=== PATIENT | female | born 1960 | race African-American/Black ===

== ENCOUNTER 2017-06-22 10:34 | Emergency (ER) | payer MEDICAID ==
[~2017-06-22] VITALS: Ht 167.6 cm; Wt 63.5 kg
[~2017-06-22 10:34] MED LIST: HYDR-4446 PO
[2017-06-22 10:44] VITALS: BP 139/87
[2017-06-22] MEDS ORDERED: [UNRECOGNIZED DRUG - REMARK] (10:50)
--- NOTE | 2017-06-22 10:51 | NUR ---
Patient ambulated to bed 08.
--- NOTE | 2017-06-22 10:56 | NUR ---
Dr. Baker evaluating patient at bedside.
--- NOTE | 2017-06-22 10:58 | NUR ---
PATIENT PRESENTS TO ED WITH C/O RIGHT EYE PAIN/PRESSURE X2DAYS STS POSSIBLY R/T SINUS INFECTION. 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 PT STATES SHE GOT FACIAL PAIN AND IF HER NOSE IS CONGESTED. DENIES N/V/D; SKIN IS PINK/WARM/DRY; AAOX4 WITH EVEN AND STEADY GAIT;PT DENIES ANY FEVER, CP, SOB, OR COUGH AT THIS TIME; PATIENT STATES PAIN OF 9/10 AT THIS TIME;PATIENT POSITIONED FOR COMFORT; HOB ELEVATED; BEDRAILS UP X2; BED DOWN. ER MD MADE AWARE OF PT STATUS.
--- NOTE | 2017-06-22 11:11 | NUR ---
Patient discharged with v/s stable. Written and verbal after care instructions given and explained. Patient alert, oriented and verbalized understanding of instructions. Ambulatory with steady gait. All questions addressed prior to discharge. ID band removed. Patient advised to follow up with PMD. Rx of NORCO AND CLARITIN given. Patient educated on indication of medication including possible reaction and side effects. Opportunity to ask questions provided and answered.
[2017-06-22 11:12] VITALS: BP 128/84
== END 2017-06-22 11:11 | disposition home or self-care (01) ==
LOC: MED 10:34
DX: J32.0 Chronic maxillary sinusitis (principal); Z88.0 Allergy status to penicillin; Z88.3 Allergy status to other anti-infective agents; Z79.899 Other long term (current) drug therapy; Z90.89 Acquired absence of other organs
CPT/HCPCS: 99283

== ENCOUNTER 2017-10-11 09:44 | Emergency (ER) | payer MEDICAID ==
[~2017-10-11] VITALS: Ht 165.1 cm; Wt 64.4 kg
[~2017-10-11 09:44] MED LIST changes: +ACET-8386 PO; -HYDR-4446 PO; +[UNRECOGNIZED DRUG - REMARK]
[2017-10-11 10:04] VITALS: BP 146/87
--- NOTE | 2017-10-11 10:17 | NUR ---
Patient to bed 03.
--- NOTE | 2017-10-11 10:18 | NUR ---
PT PRESENTS TO ER W/C/O COUGH. HX SARCOIDOSIS. DENIES N/V/D; SKIN IS PINK/WARM/DRY; AAOX4 WITH EVEN AND STEADY GAIT; LUNGS CLEAR BL; HR EVEN AND REGULAR; PT DENIES ANY FEVER, SOB, OR COUGH AT THIS TIME; PATIENT STATES PAIN OF 9/10 AT THIS TIME; VSS; PATIENT POSITIONED FOR COMFORT; HOB ELEVATED; BEDRAILS UP X2; BED DOWN. ER MD MADE AWARE OF PT STATUS.
--- NOTE | 2017-10-11 10:21 | NUR ---
DR KEANE EVALUATING AAO PT AT BEDSIDE
[2017-10-11 10:33] VITALS: BP 146/87
--- NOTE | 2017-10-11 10:33 | NUR ---
Patient discharged with v/s stable. Written and verbal after care instructions given and explained. Patient alert, oriented and verbalized understanding of instructions. Ambulatory with steady gait. All questions addressed prior to discharge. ID band removed. Patient advised to follow up with PMD. Rx of FATOUMATA LEE given. Patient educated on indication of medication including possible reaction and side effects. Opportunity to ask questions provided and answered.
== END 2017-10-11 10:33 | disposition home or self-care (01) ==
LOC: MED 09:44
DX: J40 Bronchitis, not specified as acute or chronic (principal); Z76.5 Malingerer [conscious simulation]; Z79.899 Other long term (current) drug therapy; Z88.0 Allergy status to penicillin; Z88.8 Allergy status to other drugs, medicaments and biological substances
CPT/HCPCS: 99283

== ENCOUNTER 2018-10-03 11:13 | Emergency (ER) | payer MEDICAID ==
[~2018-10-03] VITALS: Ht 165.1 cm; Wt 62.6 kg
[2018-10-03 11:21] VITALS: BP 128/84
--- NOTE | 2018-10-03 11:27 | NUR ---
Patient ambulated to bed 4 at this time.
--- NOTE | 2018-10-03 11:40 | NUR ---
PATIENT PRESENTS TO ED WITH C/O RIGHT SHOULDER PAIN X 3 DAYS. REPORTS HX OF SHOULDER BURSITIS. PATIENT STATES PAIN OF 8/10 AT THIS TIME; VSS; PATIENT POSITIONED FOR COMFORT; HOB ELEVATED; BEDRAILS UP X2; BED DOWN. ER MD MADE AWARE OF PT STATUS.
--- NOTE | 2018-10-03 13:24 | NUR ---
Patient being evaluated by physician at bedside.
[2018-10-03] MEDS ORDERED: MORPHINE SULFATE 4 MG/ML SYR IM ONE (13:30)
[2018-10-03 14:21] VITALS: BP 128/84
--- NOTE | 2018-10-03 14:21 | NUR ---
Patient discharged with v/s stable. Written and verbal after care instructions given and explained. Patient alert, oriented and verbalized understanding of instructions. Ambulatory with steady gait. All questions addressed prior to discharge. ID band removed. Patient advised to follow up with PMD. Rx of PREDNISONE, MOTRIN, NORCO given. Patient educated on indication of medication including possible reaction and side effects. Opportunity to ask questions provided and answered.
== END 2018-10-03 14:21 | disposition home or self-care (01) ==
LOC: MED 11:13
DX: M25.511 Pain in right shoulder (principal); Z88.0 Allergy status to penicillin; Z88.8 Allergy status to other drugs, medicaments and biological substances; Z79.899 Other long term (current) drug therapy
CPT/HCPCS: 96372; 99283; J2270

== ENCOUNTER 2019-01-01 10:20 | Emergency (ER) | payer MEDICAID ==
[~2019-01-01] VITALS: Ht 165.1 cm; Wt 63.5 kg
[2019-01-01 10:27] VITALS: BP 115/79
--- NOTE | 2019-01-01 11:44 | NUR ---
PATIENT AMBULATED TO BED 4 AT THIS TIME.
[2019-01-01 11:45] VITALS: BP 115/79
--- NOTE | 2019-01-01 11:45 | NUR ---
58 YO FEMALE BIB SELF FOR COUGH FOR 1 WEEK, DRY COUGH, NON PRODUCTIVE COUGH, PT STATES SHE IS HERE FOR A MEDICATION REFILL, PT RAN OUT OF COUGH MEDICATION PROMETHAZINE AND WAS NOT ABLE TO MAKE AN APPT WITH HER PCP. PT IS AAOX4, VSS AT THIS TIME, EVEN AND UNLABORED BREATHING AT THIS TIME, BED DOWN, BEDRAIL UP X 1, ER MD AWARE AND NOTIFIED OF PT STATUS. PMH: NONE RX: PROMETHAZINE
--- NOTE | 2019-01-01 12:31 | NUR ---
PATIENT LEFT WITHOUT BEING SEEN BY DR. ESCOBAR. NO FURTHER CARE PROVIDED FOR PATIENT.
== END 2019-01-01 12:31 | disposition left against medical advice (07) ==
LOC: MED 10:20
DX: R05 Cough (principal); Z53.21 Procedure and treatment not carried out due to patient leaving prior to being seen by health care provider

== ENCOUNTER 2019-01-12 10:09 | Emergency (ER) | payer MEDICAID ==
[~2019-01-12] VITALS: Ht 165.1 cm; Wt 61.7 kg
[2019-01-12 10:20] VITALS: BP 132/60
--- NOTE | 2019-01-12 10:27 | NUR ---
PT C/O RIGHT HIP PAIN X 1 WEEK. HX OF BURSITIS. PATIENT STATES TOOK A NORCO BUT DID NOT HELP. NO INCREASE IN DAY TO DAY ACTIVITIES. DENIES TRAUMA. PAIN 8/10, INCREASING WITH MOVEMENT AND WEIGHT BEARING. VSS; PATIENT POSITIONED FOR COMFORT; HOB ELEVATED; BEDRAILS UP X1; BED DOWN. ER MD MADE AWARE OF PT STATUS.
[2019-01-12] MEDS ORDERED: fentaNYL 0.05 MG/ML VIAL IM ONE (10:40)
[2019-01-12 11:24] VITALS: BP 132/60
== END 2019-01-12 11:25 | disposition home or self-care (01) ==
LOC: MED 10:09
DX: M25.551 Pain in right hip (principal); Z88.6 Allergy status to analgesic agent; Z88.0 Allergy status to penicillin; Z79.891 Long term (current) use of opiate analgesic
CPT/HCPCS: 96372; 99283; J3010

== ENCOUNTER 2019-02-26 11:11 | Emergency (ER) | payer MEDICAID ==
[~2019-02-26] VITALS: Ht 165.1 cm; Wt 64.9 kg
[2019-02-26 11:22] VITALS: BP 161/84
--- NOTE | 2019-02-26 11:31 | NUR ---
MARCELLUS GLASS AT BEDSIDE TO EVALUATE PT.
--- NOTE | 2019-02-26 11:34 | NUR ---
PT A&OX4, BREATHING EVEN AND UNLABORED. LUNG SOUNDS CTAB. C/O DRY COUGH X 3 DAYS AND "OUT OF PROMETHAZINE." NSR ON MONITOR. DENIES CP/SOB/PAIN.
[2019-02-26 11:40] VITALS: BP 161/84
--- NOTE | 2019-02-26 11:40 | NUR ---
Patient discharged with v/s stable. Written and verbal after care instructions given and explained. Patient alert, oriented and verbalized understanding of instructions. Ambulatory with steady gait. All questions addressed prior to discharge. ID band removed. Patient advised to follow up with PMD. Rx of PROMETHAZINE given. Patient educated on indication of medication including possible reaction and side effects. Opportunity to ask questions provided and answered.
== END 2019-02-26 11:40 | disposition home or self-care (01) ==
LOC: MED 11:11
DX: D86.9 Sarcoidosis, unspecified (principal); E07.9 Disorder of thyroid, unspecified; Z88.1 Allergy status to other antibiotic agents; Z79.899 Other long term (current) drug therapy; Z88.8 Allergy status to other drugs, medicaments and biological substances; Z90.49 Acquired absence of other specified parts of digestive tract
CPT/HCPCS: 99283

== ENCOUNTER 2019-05-01 13:47 | Emergency (ER) | payer MEDICAID ==
[~2019-05-01] VITALS: Ht 165.1 cm; Wt 63.5 kg
[2019-05-01 13:53] VITALS: BP 106/67
--- NOTE | 2019-05-01 14:03 | NUR ---
PT BIB W/C ASSIST TO ED BED 11
--- NOTE | 2019-05-01 14:37 | NUR ---
PT REQUESTS WATER TO GIVE URINE SAMPLE, DR FAYE MADE AWARE AND OKAYED.
[2019-05-01 14:53] LABS: HEMATOCRIT 39.5 % (36-48); MEAN CORPUSCULAR HEMOGLOBIN 29 pg (27-31); MEAN CORPUSCULAR HGB CONC 33 g/dL (33-37); MEAN CORPUSCULAR VOLUME 89.3 fL (80-94); PLATELET COUNT (AUTO) 301 K/uL (140-450); RED BLOOD CELL COUNT(AUTO) 4.42 MIL/uL (4.20-5.40); RED CELL DISTRIBUTION WIDTH 15.3 % (11.6-13.7); WHITE BLOOD COUNT (AUTO) 7.9 K/uL (4.8-10.8)
[2019-05-01 15:11] LABS: ALBUMIN 3.8 g/dL (3.4-5.0); ANION GAP 15.3 (8-16); CARBON DIOXIDE 24.4 mmol/L (21-32); CREATININE 1.1 mg/dL (0.6-1.3); POTASSIUM 3.7 mmol/L (3.5-5.1); TOTAL BILIRUBIN 0.3 mg/dL (0.0-1.0)
--- NOTE | 2019-05-01 15:15 | NUR ---
STRAIGHT CATH# 14 FR Velez catheter utilizing sterile technique. Immediate return of 20 ml YELLOW CLEAR urine noted. Urine sample collected and sent to lab. Pt tolerated procedure WELL. POSITIONED TO COMFORT.
[2019-05-01 15:18] LABS: APPEARANCE,URINE CLEAR (CLEAR); BILIRUBIN,URINE 2+ (NEGATIVE); BLOOD, URINE NEGATIVE (NEGATIVE); COLOR,URINE YELLOW (YELLOW); LEUKOCYTE ESTERASE ,URINE NEGATIVE (NEGATIVE); NITRITE, URINE NEGATIVE (NEGATIVE); PH,URINE 5.5 (5.0-9.0); UGLUCOSE NEGATIVE (NEGATIVE)
[2019-05-01 15:24] LABS: EOSINOPHILS % (MANUAL) 30 % (0-4); LYMPHOCYTES % (MANUAL) 37 % (20-46); MONOCYTES % (MANUAL) 2 % (5-12)
--- NOTE | 2019-05-01 16:05 | NUR ---
Patient discharged with v/s stable. Written and verbal after care instructions given and explained. Patient verbalized understanding. Ambulatory with steady gait. All questions addressed prior to discharge. Advised to follow up with PMD.
[2019-05-01 16:14] VITALS: BP 105/61
== END 2019-05-01 16:05 | disposition home or self-care (01) ==
LOC: MED 13:47
DX: R10.9 Unspecified abdominal pain (principal); R53.1 Weakness; E07.9 Disorder of thyroid, unspecified; E78.5 Hyperlipidemia, unspecified; Z79.899 Other long term (current) drug therapy; Z88.0 Allergy status to penicillin; Z88.8 Allergy status to other drugs, medicaments and biological substances
CPT/HCPCS: 36415; 80053; 81003; 85025; 87086; 99283; C1758

== ENCOUNTER 2019-05-05 20:25 | Emergency (ER) | payer MEDICAID ==
[~2019-05-05] VITALS: Ht 165.1 cm; Wt 59.4 kg
[2019-05-05 20:35] VITALS: BP 120/71
--- NOTE | 2019-05-05 20:41 | NUR ---
PT AMBULATED BACK OUT TO [facility]
--- NOTE | 2019-05-05 21:16 | NUR ---
PT BROUGHT TO BED 2 VIA WHEELCHAIR
--- NOTE | 2019-05-05 21:26 | NUR ---
PT C/O COUGH WITH YELLOW-GREENISH SPUTUM FOR ONE WEEK. DENIES N/V/D; SKIN IS PINK/WARM/DRY; AAOX4 WITH EVEN AND STEADY GAIT; PT DENIES ANY FEVER OR CHEST PAIN AT THIS TIME; PATIENT STATES PAIN OF 0/10 AT THIS TIME; VSS; PATIENT POSITIONED FOR COMFORT; HOB ELEVATED; BEDRAILS UP X1; BED DOWN. ER MD MADE AWARE OF PT STATUS.
--- NOTE | 2019-05-05 21:49 | NUR ---
Patient discharged with v/s stable. Written and verbal after care instructions given and explained. Patient alert, oriented and verbalized understanding of instructions. Ambulatory with steady gait. All questions addressed prior to discharge. ID band removed. Patient advised to follow up with PMD. Rx of ALBUTEROL, PREDNISONE, AND TESSALON PERLES given. Patient educated on indication of medication including possible reaction and side effects. Opportunity to ask questions provided and answered.
[2019-05-05 21:50] VITALS: BP 119/70
== END 2019-05-05 21:49 | disposition home or self-care (01) ==
LOC: MED 20:25
DX: J40 Bronchitis, not specified as acute or chronic (principal); Z88.0 Allergy status to penicillin; Z88.8 Allergy status to other drugs, medicaments and biological substances; Z79.899 Other long term (current) drug therapy
CPT/HCPCS: 71045; 99283

== ENCOUNTER 2019-05-12 13:45 | Emergency (ER) | payer MEDICAID ==
[~2019-05-12] VITALS: Ht 165.1 cm; Wt 64.1 kg
[2019-05-12 14:23] VITALS: BP 111/75
--- NOTE | 2019-05-12 14:29 | NUR ---
VSS. WAIT IN LOBBY
--- NOTE | 2019-05-12 14:46 | NUR ---
PT TO ROOM 12
--- NOTE | 2019-05-12 14:47 | NUR ---
59 Y FEMALE BIB SELF C/O ANGEL LEGS SWOLLEN X 2 DAYS. CHRONIC COUGH 7 SEEN HERE FOR BROCHITIS 05/05/19. PT STATES SHE WANTS A REFILL FOR HER LASIX AND PROMETHAZINE SINCE HER DR IS UNAVAILABLE. LUNGS CLEAR BILATERALLY. SLIGHT SWELLING BILATERAL LEGS, PALPABLE PEDAL PULSES. VSS AT THIS TIME. PT AA0X4. BED IS DOWN, LOCKED, BED RAIL X 1, ERMD TO SEE PT. MED HX: SARCOIDOSIS RX- UNKNOWN DOSES OF LASIX AND PROMETHAZINE
--- NOTE | 2019-05-12 15:19 | NUR ---
DR ESCOBAR AT BEDSIDE
[2019-05-12] MEDS ORDERED: methylPREDNISolone SS 125 MG/2 ML VIAL IVP ONE (15:35)
[2019-05-12] MEDS ORDERED: ALBUTEROL SULFATE/IPRATROPIU 3 ML SOL IH ONE (15:35)
--- NOTE | 2019-05-12 15:40 | NUR ---
US WAITING FOR XRAY TO FINISH
--- NOTE | 2019-05-12 15:40 | NUR ---
XRAY AT BEDSIDE
--- NOTE | 2019-05-12 15:51 | NUR ---
LAB AT BEDSIDE
--- NOTE | 2019-05-12 15:58 | NUR ---
LAB STATES THEY CAN'T GET BLOOD, WILL RETURN AFTER US IS FINISHED
--- NOTE | 2019-05-12 16:00 | NUR ---
ULTRA SOUND PROCEDURE IN PROGRESS SAP ABAP DEVELOPER TO ATTEMPT [facility] THERAPY AT A LATER TIME
--- NOTE | 2019-05-12 16:13 | NUR ---
[facility] THERAPY AND RESIRATORY DRUG GIVEN ORDERED ENCOURAGED PATIENT WITH ACKNOWLEDGEMENT FOR INTERMITTENT DEEP BREATHING DURING THERAPY
[2019-05-12 16:17] LABS: BARBITURATE, URINE NEG. ng/ml (NEG <=200); BENZODIAZEPINE, URINE NEG. ng/mL (NEG <=200); CANNABINOID, URINE NEG. ng/mL (NEG <=50); COCAINE, URINE NEG. ng/mL (NEG <=300); OPIATE, URINE NEG. ng/mL (NEG <=2000); PHENCYCLIDINE SCREEN,URINE NEG. ng/mL (NEG <=25)
[2019-05-12 16:48] LABS: HEMATOCRIT 34.6 % (36-48); HEMOGLOBIN 11.3 g/dL (12.0-16.0); MEAN CORPUSCULAR HEMOGLOBIN 29 pg (27-31); MEAN CORPUSCULAR HGB CONC 33 g/dL (33-37); MEAN CORPUSCULAR VOLUME 89.8 fL (80-94); PLATELET COUNT (AUTO) 375 K/uL (140-450); RED BLOOD CELL COUNT(AUTO) 3.85 MIL/uL (4.20-5.40); RED CELL DISTRIBUTION WIDTH 15.5 % (11.6-13.7); WHITE BLOOD COUNT (AUTO) 10.6 K/uL (4.8-10.8)
[2019-05-12 17:00] LABS: CARBON DIOXIDE 33.3 mmol/L (21-32); CREATININE 0.8 mg/dL (0.6-1.3); POTASSIUM 3.3 mmol/L (3.5-5.1); PROTHROMBIN TIME 9.3 secs (10.8-13.4)
[2019-05-12 17:06] LABS: ALBUMIN 3.5 g/dL (3.4-5.0); MAGNESIUM 1.4 mg/dL (1.8-2.4); TOTAL BILIRUBIN 0.2 mg/dL (0.0-1.0)
[2019-05-12 17:25] LABS: BASOPHILS % (MANUAL) 0 % (0-2); EOSINOPHILS % (MANUAL) 11 % (0-4); LYMPHOCYTES % (MANUAL) 51 % (20-46); MONOCYTES % (MANUAL) 5 % (5-12)
[2019-05-12] MEDS ORDERED: FURO-572 PO (17:39)
[2019-05-12] MEDS ORDERED: PHE25S RC (17:39)
--- NOTE | 2019-05-12 18:53 | NUR ---
VSS AT THIS TIME. PT AA0X4. PT CO 07/[address] ESCOBAR NOTIFIED.
--- NOTE | 2019-05-12 19:15 | NUR ---
report given to cris campos
[2019-05-12] MEDS ORDERED: MORPHINE SULFATE 4 MG/ML SYR IVP ONE (19:30)
[2019-05-12] MEDS ORDERED: ONDANSETRON 4 MG/2 ML VIAL IVP ONE (19:30)
--- NOTE | 2019-05-12 19:30 | NUR ---
RECEIVED REPORT FROM AM NURSE. PT LAYING IN BED, RR EVEN AND UNLABORED. VSS. REPORTS CHRONIC UPPER BACK PAIN AT THIS TIME. ALL NEEDS MET.
--- NOTE | 2019-05-12 20:20 | NUR ---
Patient to be transferred to [facility]. Is being transferred due to PLEURAL EFFUSION. Receiving facility has accepting physician and available space. ER physician has signed transfer form. Patient or responsible democrat has agreed to transfer and signed form. Patient belongings inventoried and will be sent with patient. Copy of nursing notes, lab reports, EKG, Physicians Orders and X-rays to be sent with patient. Report called to MANN CORADO at receiving facility. [facility] ambulance service has been called for transfer. ETA is 50 MINS.
--- NOTE | 2019-05-12 20:50 | NUR ---
[facility] AT BEDSIDE.
--- NOTE | 2019-05-12 20:50 | NUR ---
PT LAYING IN BED, RR EVEN AND UNLABORED. VSS. REPORTS IMPROVEMENT IN UPPER BACK PAIN AFTER MEDS. [facility] AT BEDSIDE, REPORT GIVEN. PT BELONGINGS AND TRANSFER PAPERWORK GIVEN TO [facility].
[2019-05-12 21:00] VITALS: BP 125/72
--- NOTE | 2019-05-12 21:00 | NUR ---
PT TAKEN BY [facility] TO [facility] ROOM 124A
== END 2019-05-12 21:00 | disposition short-term general hospital (02) ==
LOC: MED 13:45
DX: J90 Pleural effusion, not elsewhere classified (principal); R60.0 Localized edema; Z87.09 Personal history of other diseases of the respiratory system; Z88.0 Allergy status to penicillin; Z88.8 Allergy status to other drugs, medicaments and biological substances; Z79.899 Other long term (current) drug therapy
CPT/HCPCS: 36415; 71045; 71250; 80053; 80305; 83735; 84484; 85025; 85379; 85610; 93005; 93971; 94640; 96374; 96375; 99285; J2270; J2405; J2930; J7620; Q0092

== ENCOUNTER 2019-05-26 09:48 | Emergency (ER) | payer MEDICAID ==
[~2019-05-26] VITALS: Ht 162.6 cm; Wt 63.2 kg
[~2019-05-26 09:48] MED LIST changes: +FURO-572 PO; +PHE25S RC; -[UNRECOGNIZED DRUG - REMARK]
[2019-05-26 09:55] VITALS: BP 118/75
--- NOTE | 2019-05-26 09:58 | NUR ---
Patient ambulated to bed 7.
--- NOTE | 2019-05-26 10:05 | NUR ---
PT BIB SELF C/O BLE EDEMA X4 DAYS. PT STATES SHE THINKS IT COULD BE FROM HER DAUGHTER COOKING WITH EXCESS SALT. LEGS DO NOT APPEAR SWOLLEN, NO PITTING EDEMA, RADIAL PULSES EQUAL 2+, NO JUGULAR BRYCE DISTENTION, HEART RRR, LUNG SOUNDS CLEAR THROUGHOUT. PT WAS SEEN HERE ON 05/22 AND SEND TO A HOSPITAL IN [place] DUE TO PLUERAL EFUSION SECONDARY TO KIDNEY INFECTION. VSS. ER MD TO SEE PT. MEDHX:PLUERAL EFFUSION, SACOIDOSIS, CHRONIC BACK PAIN RX:NORCO
== END 2019-05-26 10:27 | disposition home or self-care (01) ==
LOC: MED 09:48
DX: I89.0 Lymphedema, not elsewhere classified (principal); D86.9 Sarcoidosis, unspecified; Z88.0 Allergy status to penicillin; Z88.8 Allergy status to other drugs, medicaments and biological substances; Z79.899 Other long term (current) drug therapy
CPT/HCPCS: 99281

== ENCOUNTER 2019-06-05 14:10 | Emergency (ER) | payer MEDICAID ==
[~2019-06-05] VITALS: Ht 167.6 cm; Wt 61.2 kg
[2019-06-05 14:17] VITALS: BP 123/74
--- NOTE | 2019-06-05 14:18 | NUR ---
59 Y FEMALE BIB SELF C/O CHRONIC, DRY COUGH. PT STATES RECENTLY SHE HASNT BEEN ABLE TO SLEEP BECAUSE OF THE COUGH. LUNGS CLEAR BILATERALLY, RR EVEN AND UNLABORED. PAIN 02/03. VSS AT THIS TIME. PT AA0X4. PT REQUESTING MEDICATIONS UNTIL SHE CAN FOLLOW UP WITH HER PCP. PMH- SARCOIDOSIS, HIGH CHOLESTEROL RX- SIMVASTATIN
--- NOTE | 2019-06-05 14:22 | NUR ---
PT TO WAIT IN ER LOBBY. PT AA0X4. FULL, CLEAR SPEECH. VSS AT THIS TIME.
[2019-06-05] MEDS ORDERED: SIMV10TA1 PO (14:30)
--- NOTE | 2019-06-05 15:21 | NUR ---
PT AMBULATED TO BED 02.
--- NOTE | 2019-06-05 15:38 | NUR ---
RADHA ROLLE AT BEDSIDE FOR PT EVALUATION
[2019-06-05 15:51] VITALS: BP 127/75
--- NOTE | 2019-06-05 15:51 | NUR ---
Patient discharged with v/s stable. Written and verbal after care instructions given and explained. Patient alert, oriented and verbalized understanding of instructions. Ambulatory with steady gait. All questions addressed prior to discharge. ID band removed. Patient advised to follow up with PMD IN 2-3 DAYS. Rx of TESSALTREVER PERLES, PROMETHAZINE given. Patient educated on indication of medication including possible reaction and side effects. Opportunity to ask questions provided and answered.
== END 2019-06-05 15:51 | disposition home or self-care (01) ==
LOC: MED 14:10
DX: R05 Cough (principal); D86.9 Sarcoidosis, unspecified; Z76.0 Encounter for issue of repeat prescription; Z79.899 Other long term (current) drug therapy; Z88.0 Allergy status to penicillin; Z88.8 Allergy status to other drugs, medicaments and biological substances
CPT/HCPCS: 99283

== ENCOUNTER 2019-06-27 09:54 | Emergency (ER) | payer MEDICAID ==
[~2019-06-27] VITALS: Ht 168.9 cm; Wt 62.1 kg
[~2019-06-27 09:54] MED LIST changes: -FURO-572 PO; +SIMV10TA1 PO
[2019-06-27 10:02] VITALS: BP 120/82
--- NOTE | 2019-06-27 10:07 | NUR ---
PT AMB TO BED 8 WITH STEADY GAIT
--- NOTE | 2019-06-27 10:07 | NUR ---
59 Y FEMALE BIB SELF C/O CHRONIC UPPER BACK PAIN 08/06. DENIES DYSURIA. PT REQUESTING TRAMADOL. NO OBVIOUS DEFORMITY. VSS AT THIS TIME. AA0X4. BED IS DOWN, LOCKED, BED RAIL X 1, ERMD TO SEE PT. PMH- SARCODOSIS RX- NORCO 325
--- NOTE | 2019-06-27 10:31 | NUR ---
dr denis at bedside
[2019-06-27 10:42] VITALS: BP 119/83
--- NOTE | 2019-06-27 10:42 | NUR ---
Patient discharged with v/s stable. Written and verbal after care instructions given and explained. Patient alert, oriented and verbalized understanding of instructions. Ambulatory with steady gait. All questions addressed prior to discharge. ID band removed. Patient advised to follow up with PMD. Rx of motrin, tramadol hydrochloride, zofran given. Patient educated on indication of medication including possible reaction and side effects. Opportunity to ask questions provided and answered.
== END 2019-06-27 10:42 | disposition home or self-care (01) ==
LOC: MED 09:54
DX: G89.29 Other chronic pain (principal); M54.6 Pain in thoracic spine; Z90.49 Acquired absence of other specified parts of digestive tract; Z98.890 Other specified postprocedural states; Z79.899 Other long term (current) drug therapy; Z88.0 Allergy status to penicillin; Z88.8 Allergy status to other drugs, medicaments and biological substances
CPT/HCPCS: 99283

== ENCOUNTER 2019-07-30 08:21 | Emergency (ER) | payer MEDICAID ==
[~2019-07-30] VITALS: Ht 165.1 cm; Wt 63.5 kg
[2019-07-30 08:32] VITALS: BP 150/77
--- NOTE | 2019-07-30 08:42 | NUR ---
PT AMB TO BED 2.
--- NOTE | 2019-07-30 08:55 | NUR ---
PT STATES SHE WOULD LIKE A MED REFIL FOR EITHER TYLENOL 3 OR TRAMADOL. STATES SHE TYPICALLY RECEIVES NORCO FOR HER SARCOIDOSIS/CHRONIC BACK PAIN BUT SHE DOESN'T LIKE HOW IT MAKES HER FEEL. PT STATES SHE HAS PAIN RIGHT NOW BUT IT ISNT ANYTHING UNUSUAL FOR HER SHE SUFFERS FROM BACK PAIN EVERYDAY. BED IN LOW POSITION, SIDE RAIL UP X1
[2019-07-30 09:44] VITALS: BP 150/77
--- NOTE | 2019-07-30 09:44 | NUR ---
Patient discharged with v/s stable. Written and verbal after care instructions given and explained. Patient alert, oriented and verbalized understanding of instructions. Ambulatory with steady gait. All questions addressed prior to discharge. ID band removed. Patient advised to follow up with PMD. Rx of REGLAN & TRAMADOL given. Patient educated on indication of medication including possible reaction and side effects. Opportunity to ask questions provided and answered.
== END 2019-07-30 09:44 | disposition home or self-care (01) ==
LOC: MED 08:21
DX: M54.6 Pain in thoracic spine (principal); D86.9 Sarcoidosis, unspecified; Z79.899 Other long term (current) drug therapy; Z88.0 Allergy status to penicillin; Z88.8 Allergy status to other drugs, medicaments and biological substances
CPT/HCPCS: 99283

== ENCOUNTER 2019-10-04 13:01 | Emergency (ER) | payer MEDICAID ==
[~2019-10-04] VITALS: Ht 165.1 cm; Wt 63.5 kg
[2019-10-04 13:06] VITALS: BP 108/75
--- NOTE | 2019-10-04 13:09 | NUR ---
PT STATES "I CANT STAND ON THE SCALE, I AM TOO WEAK" PT AMBULATES WITHOUT ASSISTANCE FROM ER LOBBY TO TRIAGE ROOM WITH STEADY GAIT
--- NOTE | 2019-10-04 13:11 | NUR ---
PT TO ER LOBBY. PT ALERT AND AWAKE.
--- NOTE | 2019-10-04 13:14 | NUR ---
PT STATES SHE IS UNABLE TO PROVIDE URINE AT THIS TIME
--- NOTE | 2019-10-04 13:54 | NUR ---
PT AMBULATED TO BED 03.
--- NOTE | 2019-10-04 14:16 | NUR ---
PT PRESENTS TO THE ED WITH C/O ABD PAIN WITH N/V/D X 0800 TODAY. PT STATES ABD PAIN FEELS LIKE "CRAMPING" AND RATES IT 9/10 AT THIS TIME. BOWEL SOUNDS ACTIVE IN ALL QUADRANTS. PT STATES LAST BM WAS 10/04/19. PT PRESENTS WITH A CLEAR SPEECH AND IS AAOX4. PT DENIES ANY FEVER, CP, SOB, OR COUGH AT THIS TIME. PT STATES THAT SHE WOULD ALSO LIKE TO FIND OUT ABOUT GETTING A PRESCRIPTION REFILL. PT POSITIONED FOR COMFORT. BED RAILS UP X 1. ER MD TO SEE PT. ALLERGY: PENICILLIN PMH- HIGH CHOLESTEROL, CHRONIC BACK PAIN, SARCODOSIS RX: ATVORSTATIN, NORCO, TRAMADOL
[2019-10-04] MEDS ORDERED: fentaNYL 0.05 MG/ML VIAL IVP ONE (15:25)
[2019-10-04] MEDS ORDERED: ONDANSETRON 4 MG/2 ML VIAL IVP ONE (15:25)
[2019-10-04] MEDS ORDERED: NACL 0.9% 1,000 ML IV ONE (15:25)
--- NOTE | 2019-10-04 17:13 | NUR ---
Patient discharged with v/s stable. Written and verbal after care instructions given and explained. Patient alert, oriented and verbalized understanding of instructions. Ambulatory with steady gait. All questions addressed prior to discharge. ID band removed. Patient advised to follow up with PMD. Rx of TRAMADOL 50 MG, ZOFRAN ODT 4 MG given. Patient educated on indication of medication including possible reaction and side effects. Opportunity to ask questions provided and answered.
[2019-10-04 17:14] VITALS: BP 121/74
== END 2019-10-04 17:13 | disposition home or self-care (01) ==
LOC: MED 13:01
DX: R10.84 Generalized abdominal pain (principal); R11.10 Vomiting, unspecified; R19.7 Diarrhea, unspecified; Z79.899 Other long term (current) drug therapy; Z79.1 Long term (current) use of non-steroidal anti-inflammatories (NSAID); Z88.0 Allergy status to penicillin; Z88.6 Allergy status to analgesic agent
CPT/HCPCS: 74176; 96361; 96374; 96375; 99284; J2405; J3010; J7030

== ENCOUNTER 2019-12-18 10:25 | Emergency (ER) | payer MEDICAID ==
[~2019-12-18] VITALS: Ht 165.1 cm; Wt 61.2 kg
[2019-12-18 10:42] VITALS: BP 124/72
--- NOTE | 2019-12-18 10:43 | NUR ---
TRIAGE COMPLETE. VSS. RETURNED TO LOBBY TO WAIT FOR BED IN ED. TRIAGE PROTOCOLS INITIATED.
[2019-12-18 11:35] LABS: BASOPHILS % (AUTO) 0.7 % (0.0-2.0); EOSINOPHILS # (AUTO) 0.6 K/uL (0-0.4); LYMPHOCYTES # (AUTO) 2.7 K/uL (2.5-16.5); LYMPHOCYTES % (AUTO) 57.5 % (20.5-51.1); MEAN CORPUSCULAR HEMOGLOBIN 29 pg (27-31); MEAN CORPUSCULAR HGB CONC 33 g/dL (33-37); MEAN CORPUSCULAR VOLUME 90.5 fL (80-94); MONOCYTES # (AUTO) 0.3 K/uL (0.8-1.0); MONOCYTES % (AUTO) 6.6 % (1.7-9.3); NEUTROPHILS # (AUTO) 1.1 K/uL (1.8-7.7); NEUTROPHILS % (AUTO) 23.2 % (42.2-75.2); PLATELET COUNT (AUTO) 305 K/uL (140-450); RED BLOOD CELL COUNT(AUTO) 4.09 MIL/uL (4.20-5.40); RED CELL DISTRIBUTION WIDTH 13.6 % (11.6-13.7); WHITE BLOOD COUNT (AUTO) 4.7 K/uL (4.8-10.8)
--- NOTE | 2019-12-18 11:50 | NUR ---
PT TO BED 10 WITH STEADY GAIT
[2019-12-18 11:52] LABS: ALBUMIN 3.7 g/dL (3.4-5.0); ANION GAP 13.3 (8-16); CARBON DIOXIDE 27.4 mmol/L (21-32); CREATININE 0.6 mg/dL (0.6-1.3); POTASSIUM 3.7 mmol/L (3.5-5.1); TOTAL BILIRUBIN 0.4 mg/dL (0.0-1.0)
[2019-12-18] MEDS ORDERED: fentaNYL 0.05 MG/ML VIAL IVP ONE (12:15)
[2019-12-18] MEDS ORDERED: fentaNYL 0.05 MG/ML VIAL IM ONE (12:55)
[2019-12-18] MEDS ORDERED: SODIUM CHLORIDE FLUSH 10 ML SYR IVF SCH (13:00)
--- NOTE | 2019-12-18 13:00 | NUR ---
PER DR ARMIJO GIVE FENTANYL IM NOT IVP
--- NOTE | 2019-12-18 13:04 | NUR ---
PT C/O R SIDED AB PAIN X SUMMER. PT REPORTS SHE WAS DIAGNOSED WITH AN OVARIAN MASS TO RT OVARY IN MAY. HAS SEEN GYNOCOLOGIST, HAD US, AND CT DONE. UNABLE TO FOLLOW UP WITH PCP UNTIL JANUARY. NOW C/O INCREASED PAIN IN SEVERITY OVER THE LAST WEEK. VS STABLE. PT ALERT AND AWAKE. AMBULATORY WITH STEADY GAIT.
--- NOTE | 2019-12-18 13:04 | NUR ---
PT UNABLE TO GIVE URINE AT THIS TIME
--- NOTE | 2019-12-18 13:05 | NUR ---
PAIN 08/06
--- NOTE | 2019-12-18 14:02 | NUR ---
PT STILL UNABLE TO GIVE URINE AT THIS TIME
--- NOTE | 2019-12-18 14:09 | NUR ---
PT STATES SOME RELIEF AFTER FENTANYL, PAIN 6/10
--- NOTE | 2019-12-18 14:44 | NUR ---
PER DR ARMIJO, OKAY TO DISCHARGE WITHOUT U/A
[2019-12-18 14:45] VITALS: BP 136/70
--- NOTE | 2019-12-18 14:45 | NUR ---
Patient discharged with v/s stable. Written and verbal after care instructions given and explained REGARDING OVARIAN CYST Patient alert, oriented and verbalized understanding of instructions. Ambulatory with steady gait. All questions addressed prior to discharge. ID band removed. Patient advised to follow up with PMD. Rx of TRAMADOL AND PHENERGEN given. Patient educated on indication of medication including possible reaction and side effects. Opportunity to ask questions provided and answered. INSTRUCTED TO FOLLOW UP WITH PCP REGARDING CYST
== END 2019-12-18 14:45 | disposition home or self-care (01) ==
LOC: MED 10:25
DX: N83.202 Unspecified ovarian cyst, left side (principal); Z79.899 Other long term (current) drug therapy; Z88.0 Allergy status to penicillin; Z88.8 Allergy status to other drugs, medicaments and biological substances
CPT/HCPCS: 36415; 80053; 81002; 81025; 83690; 85025; 96372; 99283; J3010

== ENCOUNTER 2020-01-20 07:58 | Emergency (ER) | payer MEDICAID ==
[~2020-01-20] VITALS: Ht 165.1 cm; Wt 63.5 kg
[2020-01-20 07:59] VITALS: BP 146/89
--- NOTE | 2020-01-20 08:09 | NUR ---
DR. RODGERS AT BEDSIDE.
--- NOTE | 2020-01-20 08:28 | NUR ---
59 y/f presents to ed for LEFT UPPER ARM PAIN X YESTERDAY. pt reports 9/10 pain and denies injury. No visible contusions, cap refill < 3 seconds. ALLERGIES- PENCILLIN, KETOROLAC
--- NOTE | 2020-01-20 09:06 | NUR ---
Patient discharged with v/s stable. Written and verbal after care instructions given and explained. Patient alert, oriented and verbalized understanding of instructions. Ambulatory with steady gait. All questions addressed prior to discharge. ID band removed. Patient advised to follow up with PMD. Rx of IBUPROFEN given. Patient educated on indication of medication including possible reaction and side effects. Opportunity to ask questions provided and answered. PT DECLINED TO WAIT FOR SLING.
== END 2020-01-20 09:06 | disposition home or self-care (01) ==
LOC: MED 07:58
DX: S46.812A Strain of other muscles, fascia and tendons at shoulder and upper arm level, left arm, initial encounter (principal); Z88.0 Allergy status to penicillin; Z88.8 Allergy status to other drugs, medicaments and biological substances; Z79.899 Other long term (current) drug therapy; Z90.49 Acquired absence of other specified parts of digestive tract; Z98.890 Other specified postprocedural states; X50.0XXA Overexertion from strenuous movement or load, initial encounter; Y93.89 Activity, other specified; Y92.89 Other specified places as the place of occurrence of the external cause; Y99.8 Other external cause status
CPT/HCPCS: 99282